=== PATIENT | male | born 1990 | race Two or more races ===

== ENCOUNTER 2018-03-02 23:31 | Emergency (ER) | payer SELFPAY ==
[~2018-03-02] VITALS: Ht 190.5 cm; Wt 119.3 kg
[2018-03-03] MEDS ORDERED: LIDOCAINE 2% (LOCAL ANESTH.) PF 5ml SDV ONE (02:58)
[2018-03-03 03:31] VITALS: BP 121/78
== END 2018-03-03 03:38 | disposition home or self-care (01) ==
LOC: ER 23:35
DX: S61.512A Laceration without foreign body of left wrist, initial encounter (principal); W25.XXXA Contact with sharp glass, initial encounter; Y93.89 Activity, other specified; Y99.8 Other external cause status; Y92.89 Other specified places as the place of occurrence of the external cause
CPT/HCPCS: 12002; 73100; 73120

== ENCOUNTER 2018-03-07 14:56 | Emergency (ER) | payer BC ==
[~2018-03-07] VITALS: Ht 188 cm; Wt 120.2 kg
[2018-03-07] MEDS ORDERED: cefTRIAXone SOD 1,000 MG VL IM ONE (15:30)
[2018-03-07 16:28] VITALS: BP 150/98
[2018-03-07] MEDS ORDERED: LIDOCAINE 2% (LOCAL ANESTH.) PF 5ml SDV ONE (16:38)
[2018-03-07] MEDS ORDERED: NEOMYCIN-BACITRACIN-POLYM UNITDOSE PKG TOP OINT TOP ONE (16:45)
== END 2018-03-07 16:55 | disposition home or self-care (01) ==
LOC: ER 14:56
DX: S61.402A Unspecified open wound of left hand, initial encounter (principal); B99.9 Unspecified infectious disease; W19.XXXA Unspecified fall, initial encounter; Y93.89 Activity, other specified; Y99.8 Other external cause status; Y92.89 Other specified places as the place of occurrence of the external cause
CPT/HCPCS: 96372; 99283; J0696

== ENCOUNTER 2018-03-11 12:49 | Emergency (ER) | payer BC ==
[~2018-03-11] VITALS: Ht 188 cm; Wt 120.2 kg
[2018-03-11 12:59] VITALS: BP 126/78
== END 2018-03-11 13:20 | disposition left against medical advice (07) ==
LOC: ER 12:49
DX: S61.412D Laceration without foreign body of left hand, subsequent encounter (principal); Z48.01 Encounter for change or removal of surgical wound dressing; Z53.21 Procedure and treatment not carried out due to patient leaving prior to being seen by health care provider